=== PATIENT | female | born 1975 ===

== ENCOUNTER 2018-10-30 19:36 | Emergency (ER) | payer SELFPAY ==
[2018-10-30 20:04] VITALS: BP 133/66
--- NOTE | 2018-10-30 20:09 | Event Note ---
ED Screening Note Date of service: 10/30/18 Time: 20:04 ED Screening Note: 43 y/o female comes in for left side chest pain time 1 week. Nothing makes worst. Nothing makes better. No radiation. No PMH no medication Allergic ASA get swollen. This initial assessment/diagnostic orders/clinical plan/treatment(s) is/are subject to change based on patients health status, clinical progression and re- assessment by fellow clinical providers in the ED. Further treatment and workup at subsequent clinical providers discretion. Patient/guardian urged not to elope from the ED as their condition may be serious if not clinically assessed and managed. Initial orders include:
[2018-10-30 20:51] LABS: Basophils # (Auto) 0.1 K/mm3 (0.0-0.1); Basophils % (Auto) 1.5 % (0.0-1.8); Eosinophils # (Auto) 0.1 K/mm3 (0.0-0.4); Eosinophils % (Auto) 0.7 % (0.0-4.3); Hematocrit 36.6 % (30.3-42.9); Hemoglobin 12.7 gm/dl (10.1-14.3); Lymphocytes # (Auto) 2.4 K/mm3 (1.2-5.4); Lymphocytes % (Auto) 28.6 % (13.4-35.0); Mean Corpuscular HGB Conc 35 % (30-34); Mean Corpuscular Volume 89 fl (79-97); Monocytes # (Auto) 0.7 K/mm3 (0.0-0.8); Monocytes % (Auto) 8.3 % (0.0-7.3); Platelet Count 257 K/mm3 (140-440); Red Cell Distribution Width 12.9 % (13.2-15.2)
[2018-10-30 21:12] LABS: Bilirubin,Urine NEG (Negative); Blood,Urine NEG (Negative); Color,Urine Straw (Yellow); Protein,Urine <15 mg/dL mg/dL (Negative); Urobilinogen,Urine < 2.0 mg/dL (<2.0); WBC,Urine < 1.0 /HPF (0.0-6.0)
[2018-10-30 21:17] LABS: Alanine Aminotransferase 10 units/L (7-56); Albumin 4.5 g/dL (3.9-5); BUN/Creatinine Ratio 20; Blood Urea Nitrogen 16 mg/dL (7-17); Calcium 9.3 mg/dL (8.4-10.2); Hemolysis Index 4
[2018-10-30] MEDS ORDERED: IBUPROFEN PO ONE (22:18)
[2018-10-30] MEDS ORDERED: ALUM-MAG HYDROX-SIMETH 200-200-20MG/5ML PO ONE (22:18)
[2018-10-30] MEDS ORDERED: LIDOCAINE VISCOUS 2% PO ONE (22:18)
--- NOTE | 2018-10-30 22:22 | XRay Report ---
CHEST 2 VIEWS INDICATION: Chest pain.. COMPARISON: None FINDINGS: Support devices: None. Heart: Within normal limits. Lungs: No acute air space or interstitial disease. Pleura: No significant pleural effusion. No pneumothorax. Additional findings: None. IMPRESSION: 1. No acute findings. Signer Name: José Betancourt MD Signed: 10/30/2018 10:18 PM Workstation Name: [id number]
--- NOTE | 2018-10-31 00:06 | Emergency Department Report ---
ED Chest Pain HPI - General Chief Complaint: Chest Pain Stated Complaint: CHEST PAIN Time Seen by Provider: 10/30/18 20:03 Source: patient, family Mode of arrival: Ambulatory Limitations: No Limitations - History of Present Illness Initial Comments: pt is a 43 y/o female who comes in for left side chest pain time 1 week. Nothing makes worst. Nothing makes better. No radiation. PMH : GERD no medication Allergic ASA get swollen. There is no N/V no sob no diaphoresis no back pain MD Complaint: chest pain Onset/Timin -: week(s) Onset: during rest, during exertion, after eating Pain Location: epigastric Pain Radiation: none Severity scale (0 -10): 3 Quality: tightness, pressure Consistency: intermittent Improves With: nothing Worsens With: nothing re: denies: nausea, vomting, diaphoresis, dyspnea, sense of impending doom Other Symptoms: acid taste in mouth, burping. denies: cough, fever, syncope, rash, leg swelling, palpitations Treatments Prior to Arrival: none - Related Data Previous Rx's Medication Instructions Recorded Last Taken Type Ibuprofen [Motrin 800 MG tab] 800 mg PO Q8HR PRN #30 tablet 10/31/18 Unknown Rx Omeprazole 20 mg PO DAILY #30 tablet. 10/31/18 Unknown Rx Sucralfate [Carafate] 1 gm PO ACHS 7 Days #28 tablet 10/31/18 Unknown Rx Allergies Allergy/AdvReac Type Severity Reaction Status Date / Time aspirin Allergy Swelling Verified 10/30/18 19:40 Heart Score - HEART Score History: Slightly suspicious EKG: Normal Age: < 45 Risk factors: No known risk factors Troponin: < normal limit HEART Score: 0 ED Review of Systems ROS: Stated complaint: CHEST PAIN Other details as noted in HPI Constitutional: denies: chills, fever Eyes: denies: eye pain, eye discharge, vision change ENT: denies: ear pain, throat pain Respiratory: denies: cough, shortness of breath, wheezing Cardiovascular: denies: chest pain, palpitations Endocrine: no symptoms reported Gastrointestinal: denies: abdominal pain, nausea, diarrhea Genitourinary: denies: urgency, dysuria, discharge Musculoskeletal: denies: back pain, joint swelling, arthralgia Skin: denies: rash, lesions Neurological: denies: headache, weakness, paresthesias Psychiatric: denies: anxiety, depression Hematological/Lymphatic: other. denies: easy bleeding, easy bruising ED Past Medical Hx - Past Medical History Previous Medical History?: No Hx GERD: Yes - Surgical History Past Surgical History?: Yes Additional Surgical History: SPINAL SURGERY, - Social History Smoking Status: Never Smoker Substance Use Type: None - Medications Home Medications: Home Medications Medication Instructions Recorded Confirmed Last Taken Type Ibuprofen [Motrin 800 MG tab] 800 mg PO Q8HR PRN #30 tablet 10/31/18 Unknown Rx Omeprazole 20 mg PO DAILY #30 tablet. 10/31/18 Unknown Rx Sucralfate [Carafate] 1 gm PO ACHS 7 Days #28 tablet 10/31/18 Unknown Rx ED Physical Exam - General Limitations: No Limitations General appearance: alert, in no apparent distress - Head Head exam: Present: atraumatic - Eye Eye exam: Present: normal appearance, PERRL, EOMI Pupils: Present: normal accommodation - ENT ENT exam: Present: normal orophraynx, mucous membranes moist, TM's normal bilaterally, normal external ear exam - Neck Neck exam: Present: normal inspection, tenderness, full ROM. Absent: meningismus, lymphadenopathy, thyromegaly - Respiratory Respiratory exam: Present: normal lung sounds bilaterally, chest wall tenderness. Absent: respiratory distress, wheezes, stridor, prolonged expiratory - Cardiovascular Cardiovascular Exam: Present: regular rate, normal rhythm, normal heart sounds (a randomTingling). Absent: systolic murmur, diastolic murmur, rubs, gallop - GI/Abdominal GI/Abdominal exam: Present: soft, normal bowel sounds. Absent: distended, tenderness, bruit, hernia - Rectal Rectal exam: Present: deferred - Extremities Exam Extremities exam: Present: normal inspection, full ROM, normal capillary refill. Absent: tenderness, pedal edema, joint swelling, calf tenderness - Back Exam Back exam: Present: normal inspection, full ROM, muscle spasm. Absent: tenderness, CVA tenderness (R), CVA tenderness (L), paraspinal tenderness, rash noted - Neurological Exam Neurological exam: Present: alert, oriented X3, CN II-XII intact, normal gait - Psychiatric Psychiatric exam: Present: normal affect, normal mood - Skin Skin exam: Present: warm, dry, intact, normal color. Absent: rash ED Course Vital Signs 10/30/18 20:01 Temperature 98.2 F Pulse Rate 102 H Respiratory 18 Rate Blood Pressure 133/66 O2 Sat by Pulse 100 Oximetry DUGLAS score - Duglas Score Age > 65: (0) No Aspirin use within the Past 7 Days: (0) No 3 or more CAD Risk Factors: (0) No 2 or more Angina events in past 24 hrs: (0) No Known CAD with more than 50% Stenosis: (0) No Elevated Cardiac Markers: (0) No ST Deviation Greater than 0.5mm: (0) No DUGLAS Score: 0 ED Medical Decision Making - Lab Data Result diagrams: 10/30/18 20:10/30/18 20: Lab Results 10/30/18 10/30/18 10/30/18 Range/Units 20: 20: 20: WBC 8.3 (4.5-11.0) K/mm3 RBC 4.10 (3.65-5.03) M/mm3 Hgb 12.7 (10.1-14.3) gm/dl Hct 36.6 (30.3-42.9) % MCV 89 (79-97) fl MCH 31 (28-32) pg MCHC 35 H (30-34) % RDW 12.9 L (13.2-15.2) % Plt Count 257 (140-440) K/mm3 Lymph % (Auto) 28.6 (13.4-35.0) % [place] % (Auto) 8.3 H (0.0-7.3) % Eos % (Auto) 0.7 (0.0-4.3) % Baso % (Auto) 1.5 (0.0-1.8) % Lymph # 2.4 (1.2-5.4) K/mm3 [place] # 0.7 (0.0-0.8) K/mm3 Eos # 0.1 (0.0-0.4) K/mm3 Baso # 0.1 (0.0-0.1) K/mm3 Seg Neutrophils % 60.9 (40.0-70.0) % Seg Neutrophils # 5.0 (1.8-7.7) K/mm3 Sodium 140 (137-145) mmol/L Potassium 3.8 (3.6-5.0) mmol/L Chloride 103.0 (98-107) mmol/L Carbon Dioxide 23 (22-30) mmol/L Anion Gap 18 mmol/L BUN 16 (7-17) mg/dL Creatinine 0.8 (0.7-1.2) mg/dL Estimated GFR > 60 ml/min BUN/Creatinine Ratio 20 % Glucose 101 H (65-100) mg/dL Calcium 9.3 (8.4-10.2) mg/dL Total Bilirubin < 0.20 (0.1-1.2) mg/dL AST 16 (5-40) units/L ALT 10 (7-56) units/L Alkaline Phosphatase 80 (35-129) units/L Troponin T < 0.010 (0.00-0.029) ng/mL Total Protein 7.6 (6.3-8.2) g/dL Albumin 4.5 (3.9-5) g/dL Albumin/Globulin Ratio 1.5 % HCG, Qual Negative (Negative) Urine Color (Yellow) Urine Turbidity (Clear) Urine pH (5.0-7.0) Ur Specific [place] (1.003-1.030) Urine Protein (Negative) mg/dL Urine Glucose (UA) (Negative) mg/dL Urine Ketones (Negative) mg/dL Urine Blood (Negative) Urine Nitrite (Negative) Urine Bilirubin (Negative) Urine Urobilinogen (<2.0) mg/dL Ur Leukocyte Esterase (Negative) Urine WBC (Auto) (0.0-6.0) /HPF Urine RBC (Auto) (0.0-6.0) /HPF U Epithel Cells (Auto) (0-13.0) /HPF 10/30/18 Range/Units 20:29 WBC (4.5-11.0) K/mm3 RBC (3.65-5.03) M/mm3 Hgb (10.1-14.3) gm/dl Hct (30.3-42.9) % MCV (79-97) fl MCH (28-32) pg MCHC (30-34) % RDW (13.2-15.2) % Plt Count (140-440) K/mm3 Lymph % (Auto) (13.4-35.0) % [place] % (Auto) (0.0-7.3) % Eos % (Auto) (0.0-4.3) % Baso % (Auto) (0.0-1.8) % Lymph # (1.2-5.4) K/mm3 [place] # (0.0-0.8) K/mm3 Eos # (0.0-0.4) K/mm3 Baso # (0.0-0.1) K/mm3 Seg Neutrophils % (40.0-70.0) % Seg Neutrophils # (1.8-7.7) K/mm3 Sodium (137-145) mmol/L Potassium (3.6-5.0) mmol/L Chloride (98-107) mmol/L Carbon Dioxide (22-30) mmol/L Anion Gap mmol/L BUN (7-17) mg/dL Creatinine (0.7-1.2) mg/dL Estimated GFR ml/min BUN/Creatinine Ratio % Glucose (65-100) mg/dL Calcium (8.4-10.2) mg/dL Total Bilirubin (0.1-1.2) mg/dL AST (5-40) units/L ALT (7-56) units/L Alkaline Phosphatase (35-129) units/L Troponin T (0.00-0.029) ng/mL Total Protein (6.3-8.2) g/dL Albumin (3.9-5) g/dL Albumin/Globulin Ratio % HCG, Qual (Negative) Urine Color Straw (Yellow) Urine Turbidity Clear (Clear) Urine pH 6.0 (5.0-7.0) Ur Specific [place] 1.012 (1.003-1.030) Urine Protein <15 mg/dl (Negative) mg/dL Urine Glucose (UA) Neg (Negative) mg/dL Urine Ketones Neg (Negative) mg/dL Urine Blood Neg (Negative) Urine Nitrite Neg (Negative) Urine Bilirubin Neg (Negative) Urine Urobilinogen < 2.0 (<2.0) mg/dL Ur Leukocyte Esterase Neg (Negative) Urine WBC (Auto) < 1.0 (0.0-6.0) /HPF Urine RBC (Auto) 1.0 (0.0-6.0) /HPF U Epithel Cells (Auto) 1.0 (0-13.0) /HPF - EKG Data EKG shows normal: sinus rhythm, axis, intervals, QRS complexes, ST-T waves Rate: normal - EKG Data When compared to previous EKG there are: previous EKG unavailable Interpretation: normal EKG (EKG Interp by ED attending No ST Elevated IN ) - Radiology Data Radiology results: report reviewed, image reviewed Ordering Physician: MEGHANN ADKINS Date of Service: 10/30/18 Procedure(s): XR chest routine 2V Accession Number(s): [id number] cc: MEGHANN ADKINS Fluoro Time In Minutes: CHEST 2 VIEWS INDICATION: Chest pain.. COMPARISON: None FINDINGS: Support devices: None. Heart: Within normal limits. Lungs: No acute air space or interstitial disease. Pleura: No significant pleural effusion. No pneumothorax. Additional findings: None. IMPRESSION: 1. No acute findings. Signer Name: José Betancourt MD Signed: 10/30/2018 10:18 PM Workstation Name: [id number] Transcribed By: ZACKERY Dictated By: José Betancourt MD Electronically Authenticated By: José Betancourt MD Signed Date/Time: 10/30/182217 DD/ 17 TD/TT: - Medical Decision Making EKG NSR No ST Elevated IN, CXR: normal no infilatrates no opacities, heart score is 0, DUGLAS score 0, cp relieved to 0/10 with gi cocktail given in ed , there is no cp no n/v no fever or chills at this time. pt will follow up with pcp in 2-3 days return to emergency if symptoms worsen. pt verbalized agreement and understanding of same. pt verbalized agreement and understanding of same. Critical care attestation.: If time is entered above; I have spent that time in minutes in the direct care of this critically ill patient, excluding procedure time. ED Disposition Clinical Impression: Chest pain Qualifiers: Chest pain type: chest pain on breathing Qualified Code(s): R07.1 - Chest pain on breathing; R07.81 - Pleurodynia Disposition: TO HOME OR SELFCARE Is pt being admited?: No Does the pt Need Aspirin: No Condition: Stable Instructions: Chest Pain (ED) Prescriptions: Sucralfate [Carafate] 1 gm PO ACHS 7 Days #28 tablet Ibuprofen [Motrin 800 MG tab] 800 mg PO Q8HR PRN #30 tablet PRN Reason: pain Omeprazole 20 mg PO DAILY #30 tablet.dr Referrals: CHRISTI ESPINOZA MD [Staff Physician] - 3-5 Days Forms: Work/School Release Form(ED) Time of Disposition: 00:25
== END 2018-10-31 00:43 | disposition home or self-care (01) ==
LOC: ED 19:36
DX: R07.89 Other chest pain (principal); K21.9 Gastro-esophageal reflux disease without esophagitis; Z88.6 Allergy status to analgesic agent; Z79.1 Long term (current) use of non-steroidal anti-inflammatories (NSAID)
CPT/HCPCS: 36415; 71046; 80053; 81001; 84484; 84703; 85025; 93005; 93010; 99284

== ENCOUNTER 2018-11-14 09:13 | Emergency (ER) | payer SELFPAY ==
[2018-11-14 09:22] VITALS: BP 129/68
[2018-11-14] MEDS ORDERED: LIDOCAINE VISCOUS 2% PO ONE (09:58)
[2018-11-14] MEDS ORDERED: ALUM-MAG HYDROX-SIMETH 200-200-20MG/5ML PO ONE (09:58)
--- NOTE | 2018-11-14 10:01 | Emergency Department Report ---
ED Abdominal Pain HPI - General Chief Complaint: Abdominal Pain Stated Complaint: ABD PAIN Time Seen by Provider: 11/14/18 09:55 Source: patient Mode of arrival: Ambulatory Limitations: No Limitations - History of Present Illness Initial Comments: Patient is 43 years old female with no significant past medical history except for GERD. Patient presented to the ER complaining of epigastric pain for the last 3 days. Patient describes pain as a burning sensation and sharp pain sometimes with no radiation. Patient denied any nausea or vomiting or diarrhea. She also denied any chest pain or shortness of breath. No fever or chills. MD Complaint: abdominal pain -: days(s) (3) Location: epigastric Radiation: none Migration to: no migration Severity: moderate Severity scale (0 -10): 4 Quality: sharp, burning Associated Symptoms: denies other symptoms - Related Data Previous Rx's Medication Instructions Recorded Last Taken Type Ibuprofen [Motrin 800 MG tab] 800 mg PO Q8HR PRN #30 tablet 10/31/18 Unknown Rx Omeprazole 20 mg PO DAILY #30 tablet. 10/31/18 Unknown Rx Sucralfate [Carafate] 1 gm PO ACHS 7 Days #28 tablet 10/31/18 Unknown Rx Allergies Allergy/AdvReac Type Severity Reaction Status Date / Time aspirin Allergy Swelling Verified 10/30/18 19:40 ED Review of Systems ROS: Stated complaint: ABD PAIN Other details as noted in HPI Comment: All other systems reviewed and negative Constitutional: denies: chills, fever Cardiovascular: denies: chest pain, palpitations Gastrointestinal: abdominal pain. denies: nausea, vomiting, diarrhea, constipation, hematemesis, melena, hematochezia Musculoskeletal: denies: back pain ED Past Medical Hx - Past Medical History Previous Medical History?: Yes Hx GERD: Yes - Surgical History Past Surgical History?: No Hx Coronary Stent: No Hx Open Heart Surgery: No Hx Pacemaker: No Hx Internal Defibrillator: No Hx Cholecystectomy: No Hx Appendectomy: No Hx Breast Surgery: No Additional Surgical History: SPINAL SURGERY, - Social History Smoking Status: Never Smoker Substance Use Type: None - Medications Home Medications: Home Medications Medication Instructions Recorded Confirmed Last Taken Type Ibuprofen [Motrin 800 MG tab] 800 mg PO Q8HR PRN #30 tablet 10/31/18 Unknown Rx Omeprazole 20 mg PO DAILY #30 tablet. 10/31/18 Unknown Rx Sucralfate [Carafate] 1 gm PO ACHS 7 Days #28 tablet 10/31/18 Unknown Rx ED Physical Exam - General Limitations: No Limitations General appearance: alert, in no apparent distress - Head Head exam: Present: atraumatic, normocephalic, normal inspection - Eye Eye exam: Present: normal appearance, PERRL - ENT ENT exam: Present: normal exam, normal orophraynx, mucous membranes moist - Neck Neck exam: Present: normal inspection, full ROM. Absent: tenderness, meningismus, lymphadenopathy, thyromegaly - Respiratory Respiratory exam: Present: normal lung sounds bilaterally - Cardiovascular Cardiovascular Exam: Present: regular rate, normal rhythm, normal heart sounds - GI/Abdominal GI/Abdominal exam: Present: soft, normal bowel sounds. Absent: distended, tenderness, guarding, rebound, rigid, organomegaly, mass, bruit, pulsatile mass, hernia - Extremities Exam Extremities exam: Present: normal inspection, full ROM, normal capillary refill. Absent: tenderness, pedal edema, calf tenderness - Back Exam Back exam: Present: normal inspection, full ROM. Absent: CVA tenderness (R), CVA tenderness (L), muscle spasm, paraspinal tenderness, vertebral tenderness - Neurological Exam Neurological exam: Present: alert, oriented X3, CN II-XII intact, normal gait, reflexes normal - Skin Skin exam: Present: warm, intact, normal color ED Course Vital Signs 11/14/18 09:21 Temperature 98.3 F Pulse Rate 61 Respiratory 18 Rate Blood Pressure 129/68 [Right] O2 Sat by Pulse 100 Oximetry ED Medical Decision Making - Lab Data Result diagrams: 11/14/18 10:12 11/14/18 10:12 - Medical Decision Making Patient is 43 years old female with no significant past medical history except for GERD. Patient presented to the ER complaining of epigastric pain for the last 3 days. Patient describes pain as a burning sensation and sharp pain sometimes with no radiation. Patient denied any nausea or vomiting or diarrhea. She also denied any chest pain or shortness of breath. No fever or chills. Patient's symptoms significantly improved from his GI cocktail. Labs reviewed and is negative for acute finding. I believe patient's symptoms is most likely related to gastritis versus ulcer. Patient given [facility] [place] [facility]-to follow-up with in the next 2-3 days for possible endoscopy if symptoms are not improved. Patient also advised to return to the ER if symptoms get worse. Critical care attestation.: If time is entered above; I have spent that time in minutes in the direct care of this critically ill patient, excluding procedure time. ED Disposition Clinical Impression: Abdominal pain, Gastritis Disposition: DC- TO HOME OR SELFCARE Is pt being admited?: No Condition: Stable Instructions: Abdominal Pain (ED), Gastritis (ED) Referrals: [facility] [Provider Group] - 3-5 Days [facility] [Provider Group] - 3-5 Days
[2018-11-14 10:31] LABS: Basophils % (Auto) 0.6 % (0.0-1.8); Hematocrit 33.4 % (30.3-42.9); Hemoglobin 11.5 gm/dl (10.1-14.3); Lymphocytes # (Auto) 1.3 K/mm3 (1.2-5.4); Lymphocytes % (Auto) 26.8 % (13.4-35.0); Mean Corpuscular HGB Conc 34 % (30-34); Mean Corpuscular Volume 90 fl (79-97); Monocytes # (Auto) 0.3 K/mm3 (0.0-0.8); Monocytes % (Auto) 7.2 % (0.0-7.3); Platelet Count 236 K/mm3 (140-440)
[2018-11-14 10:56] LABS: Alanine Aminotransferase 114 units/L (7-56); Albumin 3.9 g/dL (3.9-5); BUN/Creatinine Ratio 20; Blood Urea Nitrogen 14 mg/dL (7-17); Calcium 9.2 mg/dL (8.4-10.2); Hemolysis Index 3
[2018-11-14 14:41] LABS: Bilirubin,Urine NEG (Negative); Blood,Urine NEG (Negative); Color,Urine Straw (Yellow); Protein,Urine <15 mg/dL mg/dL (Negative); RBC,Urine < 1.0 /HPF (0.0-6.0); Urobilinogen,Urine < 2.0 mg/dL (<2.0); WBC,Urine < 1.0 /HPF (0.0-6.0)
== END 2018-11-14 15:08 | disposition home or self-care (01) ==
LOC: ED 09:13
DX: K29.70 Gastritis, unspecified, without bleeding (principal); K21.9 Gastro-esophageal reflux disease without esophagitis; Z98.890 Other specified postprocedural states; Z79.899 Other long term (current) drug therapy; Z88.6 Allergy status to analgesic agent
CPT/HCPCS: 36415; 80053; 81001; 83690; 84703; 85025

== ENCOUNTER 2019-03-25 20:15 | Emergency (ER) | payer OTHER ==
[2019-03-25 20:25] VITALS: BP 114/43
--- NOTE | 2019-03-25 22:39 | XRay Report ---
LEFT ANKLE, 3 VIEWS INDICATION / CLINICAL INFORMATION: left ankle pain. COMPARISON: None available. FINDINGS: No fracture or dislocation. No significant soft tissue swelling. No significant degenerative change. Tiny calcaneal spur, incidentally noted. IMPRESSION: No significant abnormality.. Signer Name: Agueda Brown MD Signed: 03/25/2019 10:35 PM Workstation Name: [id number]
--- NOTE | 2019-03-25 22:40 | XRay Report ---
MR SPINE, 2 VIEWS INDICATION / CLINICAL INFORMATION: MAIN: lower back pain; Back, should and left knee pain, S/P fall at work today as per pt, denies sahara ing head or LOC. COMPARISON: None available. FINDINGS: Vertebral body heights are maintained. There is minimal degenerative disc disease at L5-S1. The remai nder of the disc spaces are well-preserved. Alignment is normal. IMPRESSION: Mild degenerative disc disease at L5-S1. No evidence for fracture or traumatic malalignme nt. Signer Name: Agueda Brown MD Signed: 03/25/2019 10:35 PM Workstation Name: [id number]
--- NOTE | 2019-03-25 22:41 | XRay Report ---
RIGHT SHOULDER, 3 VIEWS INDICATION / CLINICAL INFORMATION: Right shoulder pain. COMPARISON: None available. FINDINGS: No fracture or dislocation. The shoulder is intact. No significant degenerative change. Visualized portion of the left lung is clear. IMPRESSION: Negative exam. Signer Name: Agueda Brown MD Signed: 03/25/2019 10:37 PM Workstation Name: [id number]
--- NOTE | 2019-03-25 22:41 | XRay Report ---
LEFT KNEE, 3 VIEWS INDICATION / CLINICAL INFORMATION: left knee pain. COMPARISON: None available. FINDINGS: No fracture or dislocation. Minimal degenerative change in the medial joint compartment. IMPRESSION: Minimal degenerative change. No evidence for fracture. Signer Name: Agueda Brown MD Signed: 03/25/2019 10:36 PM Workstation Name: [id number]
[2019-03-25] MEDS ORDERED: IBUPROFEN 800 MG TAB PO ONE (23:20)
[2019-03-25] MEDS ORDERED: HYDROcodone/ACETAMINOPHEN 5-325 MG TAB PO ONE (23:20)
--- NOTE | 2019-03-25 23:33 | Emergency Department Report ---
ED Fall HPI - General Chief Complaint: Fall Stated Complaint: FALL/BACK/SHOULDER/KNEE PAIN Time Seen by Provider: 03/25/19 23:04 Source: patient, family Mode of arrival: Ambulatory - History of Present Illness Initial Comments: Patient is a 43-year-old female who is presenting with multiple areas of pain after fall at work. 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 She denies striking her head. Patient has pain at the left ankle, left knee, lower back and right shoulder. Place Fall Occurred: work Loss of Consciousness: none Severity scale (0 -10): 7 Quality: aching Context: tripped/slipped Associated Symptoms: denies: headache, neck pain, numbness, weakness, chest paint, shortness of breath - Related Data Previous Rx's Medication Instructions Recorded Last Taken Type Ibuprofen [Motrin 800 MG tab] 800 mg PO Q8HR PRN #30 tablet 10/31/18 Unknown Rx Omeprazole 20 mg PO DAILY #30 tablet. 10/31/18 Unknown Rx Sucralfate [Carafate] 1 gm PO ACHS 7 Days #28 tablet 10/31/18 Unknown Rx Esomeprazole Magnesium [NexIUM] 40 mg PO QDAY #30 capsule. 11/14/18 Unknown Rx Ketorolac [Toradol] 10 mg PO Q6H PRN #12 tablet 03/25/19 Unknown Rx methOCARBAMOL [Robaxin TAB] 500 mg PO Q6H PRN #14 tablet 03/25/19 Unknown Rx traMADoL [Ultram] 50 mg PO Q6HR PRN #12 tablet 03/25/19 Unknown Rx Allergies Allergy/AdvReac Type Severity Reaction Status Date / Time aspirin Allergy Swelling Verified 10/30/18 19:40 ED Review of Systems ROS: Stated complaint: FALL/BACK/SHOULDER/KNEE PAIN Other details as noted in HPI Comment: All other systems reviewed and negative ED Past Medical Hx - Past Medical History Previous Medical History?: Yes Hx Hypertension: Yes Hx GERD: Yes - Surgical History Past Surgical History?: Yes Hx Coronary Stent: No Hx Open Heart Surgery: No Hx Pacemaker: No Hx Internal Defibrillator: No Hx Cholecystectomy: No Hx Appendectomy: No Hx Breast Surgery: No Additional Surgical History: SPINAL SURGERY, - Social History Smoking Status: Never Smoker Substance Use Type: None - Medications Home Medications: Home Medications Medication Instructions Recorded Confirmed Last Taken Type Ibuprofen [Motrin 800 MG tab] 800 mg PO Q8HR PRN #30 tablet 10/31/18 Unknown Rx Omeprazole 20 mg PO DAILY #30 tablet. 10/31/18 Unknown Rx Sucralfate [Carafate] 1 gm PO ACHS 7 Days #28 tablet 10/31/18 Unknown Rx Esomeprazole Magnesium [NexIUM] 40 mg PO QDAY #30 capsule. 11/14/18 Unknown Rx Ketorolac [Toradol] 10 mg PO Q6H PRN #12 tablet 03/25/19 Unknown Rx methOCARBAMOL [Robaxin TAB] 500 mg PO Q6H PRN #14 tablet 03/25/19 Unknown Rx traMADoL [Ultram] 50 mg PO Q6HR PRN #12 tablet 03/25/19 Unknown Rx ED Physical Exam - General Limitations: Language Barrier, Physical Limitation General appearance: alert, in no apparent distress - Head Head exam: Present: atraumatic, normocephalic - Eye Eye exam: Present: normal appearance, PERRL, EOMI - ENT ENT exam: Present: mucous membranes moist - Neck Neck exam: Present: normal inspection - Respiratory Respiratory exam: Present: normal lung sounds bilaterally. Absent: respiratory distress, wheezes, rales, rhonchi - Cardiovascular Cardiovascular Exam: Present: regular rate, normal rhythm, normal heart sounds - GI/Abdominal GI/Abdominal exam: Present: soft, normal bowel sounds - Extremities Exam Extremities exam: Present: normal inspection - Expanded Upper Extremity Exam Right Shoulder Exam: Present: normal inspection, tenderness. Absent: full ROM, swelling, abrasion, deformity, crepidus, dislocation, tenderness over AC joint - Expanded Lower Extremity Exam Left Knee exam: Present: full ROM, tenderness (mild). Absent: swelling, erythema, effusion, posterior draw sign Ankle exam: Present: full ROM, tenderness, swelling - Back Exam Back exam: Present: normal inspection, paraspinal tenderness (lumbar), vertebral tenderness - Neurological Exam Neurological exam: Present: alert, oriented X3 - Psychiatric Psychiatric exam: Present: normal affect, normal mood - Skin Skin exam: Present: warm, dry, intact, normal color. Absent: rash ED Course Vital Signs 03/25/19 20:22 Temperature 98.4 F Pulse Rate 72 Respiratory 16 Rate Blood Pressure 114/43 O2 Sat by Pulse 99 Oximetry ED Medical Decision Making - Radiology Data X-ray left knee shows some degenerative changes but no fracture. X-ray of the right shoulder shows no fracture. Lumbar spine films show L5-S1 degenerative joint changes but no acute fracture. Left ankle shows no acute process. Critical care attestation.: If time is entered above; I have spent that time in minutes in the direct care of this critically ill patient, excluding procedure time. ED Disposition Clinical Impression: Fall Qualifiers: Encounter type: initial encounter Qualified Code(s): W19.XXXA - Unspecified fall, initial encounter Ankle sprain Qualifiers: Encounter type: initial encounter Involved ligament of ankle: unspecified ligament Laterality: left Qualified Code(s): S93.402A - Sprain of unspecified ligament of left ankle, initial encounter Lumbar strain Qualifiers: Encounter type: initial encounter Qualified Code(s): S39.012A - Strain of muscle, fascia and tendon of lower back, initial encounter Rotator cuff injury Qualifiers: Encounter type: initial encounter Laterality: right Qualified Code(s): S46.001A - Unspecified injury of muscle(s) and tendon(s) of the rotator cuff of right shoulder, initial encounter Disposition: DC-01 TO HOME OR SELFCARE Is pt being admited?: No Does the pt Need Aspirin: No Condition: Stable Instructions: Muscle Strain (ED), Musculoskeletal Pain (ED), RICE Therapy (ED) Referrals: PRIMARY CARE, [Primary Care Provider] - 3-5 Days Time of Disposition: 23:33 Print Language: IRISH
== END 2019-03-26 00:24 | disposition home or self-care (01) ==
LOC: ED 20:15
DX: S93.402A Sprain of unspecified ligament of left ankle, initial encounter (principal); S39.012A Strain of muscle, fascia and tendon of lower back, initial encounter; S46.001A Unspecified injury of muscle(s) and tendon(s) of the rotator cuff of right shoulder, initial encounter; I10 Essential (primary) hypertension; K21.9 Gastro-esophageal reflux disease without esophagitis; Z98.890 Other specified postprocedural states; Z79.1 Long term (current) use of non-steroidal anti-inflammatories (NSAID); Z79.899 Other long term (current) drug therapy; Z88.6 Allergy status to analgesic agent; W19.XXXA Unspecified fall, initial encounter; Y93.89 Activity, other specified; Y92.69 Other specified industrial and construction area as the place of occurrence of the external cause; Y99.8 Other external cause status
CPT/HCPCS: 72100

== ENCOUNTER 2020-10-24 14:40 | Outpatient (CLI) | payer OTHER ==
--- NOTE | 2020-10-24 16:23 | Mammography Report ---
BILATERAL DIGITAL DIAGNOSTIC MAMMOGRAM WITH CAD WITH TOMOSYNTHESIS -- 10/24/2020 RIGHT LIMITED BREAST ULTRASOUND INDICATION: Patient presents for evaluation of an area of palpable concern in the right breast. TECHNIQUE: Digital bilateral mammographic imaging was performed. Spot compression views were obtaine d. Limited ultrasound was performed. This examination was interpreted with the benefit of Computer- ded Detection (CAD) analysis. COMPARISON: None available FINDINGS: Breast Density: The breasts are heterogeneously dense, which may obscure small masses. MAMMOGRAPHIC FINDINGS: There is a 6 mm nodular density seen in the 6:00 position of the right breast, middle depth. Otherwise, there is no evidence of dominant mass, suspicious calcifications or archite ctural distortion in either breast. There is no mammographic abnormality underlying the marker denoti ng site of palpable concern in the upper outer quadrant of the right breast. ULTRASOUND FINDINGS: Targeted ultrasound evaluation was performed of the area of interest. Correspo nding with the nodular density seen mammographically, there is a 6 mm benign cluster of cysts seen in the right breast 6:00 position located 6 cm from the nipple. Targeted ultrasound of the area of palp able concern in the 9:00 right breast is unremarkable. IMPRESSION: 1. No suspicious mammographic or sonographic abnormality to account for the area of palpable concern in the right breast, therefore clinical correlation is recommended. Follow up recommendation: Routine yearly BI-RADS Category 2: Benign. A "normal" or negative report should not discourage follow up or biopsy of a clinically significant f inding. A written summary of these findings will be mailed to the patient. The patient will be entered into a mammography reporting system which will generate a reminder letter for the patient's next appointmen t at the appropriate interval. According to the [employer], yearly mammograms are recommended starting at age 40 and continuing as long as a woman is in good health. Breast MRI is recommended for women with an malka roximately 20-25% or greater lifetime risk of breast cancer, including women with a strong family his tory of breast or ovarian cancer and women who have been treated for Hodgkin's disease. Signer Name: Juanita Sky MD Signed: 10/24/2020 4:18 PM Workstation Name: [email or web address]
== END 2020-10-24 14:41 | disposition home or self-care (01) ==
LOC: SPVWC 14:40
PROVIDERS: ATTEND Surgery
DX: N60.01 Solitary cyst of right breast (principal)
CPT/HCPCS: 76642; 77066; G0279

== ENCOUNTER 2021-07-17 09:48 | Emergency (ER) | payer OTHER ==
--- NOTE | 2021-07-17 12:07 | Emergency Department Report ---
ED Back Pain/Injury HPI - General Chief Complaint: Abdominal Pain Stated Complaint: BACK PAIN X3 DAYS Time Seen by Provider: 07/17/21 11:59 Source: patient Limitations: Language Barrier - History of Present Illness Initial Comments: 46-year-old female presents to the emergency room for 4-day history of right flank pain. Patient denies any radiation denies hematuria no vaginal discharge dysuria. Patient denies any injury. 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 States that she is allergic to aspirin therefore she is only taking Tylenol. She reports she does not have a primary care provider. MD Complaint: back pain Similar Symptoms Previously: No Radiation: none Severity scale (0 -10): 5 Improves With: none Worsens With: none Associated Symptoms: denies: weakness, difficulty urinating, fever/chills, constipation - Related Data Previous Rx's Medication Instructions Recorded Last Taken Type Ibuprofen [Motrin 800 MG tab] 800 mg PO Q8HR PRN #30 tablet 10/31/18 Unknown Rx Omeprazole 20 mg PO DAILY #30 tablet. 10/31/18 Unknown Rx Sucralfate [Carafate] 1 gm PO ACHS 7 Days #28 tablet 10/31/18 Unknown Rx Esomeprazole Magnesium [NexIUM] 40 mg PO QDAY #30 capsule. 11/14/18 Unknown Rx Ketorolac [Toradol] 10 mg PO Q6H PRN #12 tablet 03/25/19 Unknown Rx methOCARBAMOL [Robaxin TAB] 500 mg PO Q6H PRN #14 tablet 07/17/21 Unknown Rx traMADoL [Ultram 50 MG tab] 50 mg PO Q6HR PRN #12 tablet 07/17/21 Unknown Rx Allergies Allergy/AdvReac Type Severity Reaction Status Date / Time aspirin Allergy Swelling Verified 07/17/21 11:33 ED Review of Systems ROS: Stated complaint: BACK PAIN X3 DAYS Other details as noted in HPI Comment: All other systems reviewed and negative ED Past Medical Hx - Past Medical History Previous Medical History?: Yes Hx Hypertension: Yes Hx GERD: Yes - Surgical History Hx Coronary Stent: No Hx Open Heart Surgery: No Hx Pacemaker: No Hx Internal Defibrillator: No Hx Cholecystectomy: No Hx Appendectomy: No Hx Breast Surgery: No Additional Surgical History: SPINAL SURGERY, - Social History Smoking Status: Never Smoker Substance Use Type: None - Medications Home Medications: Home Medications Medication Instructions Recorded Confirmed Last Taken Type Ibuprofen [Motrin 800 MG tab] 800 mg PO Q8HR PRN #30 tablet 10/31/18 Unknown Rx Omeprazole 20 mg PO DAILY #30 tablet. 10/31/18 Unknown Rx Sucralfate [Carafate] 1 gm PO ACHS 7 Days #28 tablet 10/31/18 Unknown Rx Esomeprazole Magnesium [NexIUM] 40 mg PO QDAY #30 capsule. 11/14/18 Unknown Rx Ketorolac [Toradol] 10 mg PO Q6H PRN #12 tablet 03/25/19 Unknown Rx methOCARBAMOL [Robaxin TAB] 500 mg PO Q6H PRN #14 tablet 07/17/21 Unknown Rx traMADoL [Ultram 50 MG tab] 50 mg PO Q6HR PRN #12 tablet 07/17/21 Unknown Rx ED Physical Exam - General Limitations: Language Barrier General appearance: alert, in no apparent distress - Head Head exam: Present: atraumatic, normocephalic, normal inspection - Eye Eye exam: Present: normal appearance, EOMI - ENT ENT exam: Present: normal external ear exam - Neck Neck exam: Present: normal inspection, full ROM - Respiratory Respiratory exam: Absent: respiratory distress - Cardiovascular Cardiovascular Exam: Present: regular rate - GI/Abdominal GI/Abdominal exam: Present: soft. Absent: distended, tenderness, guarding - Extremities Exam Extremities exam: Present: normal inspection, full ROM. Absent: tenderness - Back Exam Back exam: Present: normal inspection, full ROM. Absent: tenderness, CVA tenderness (R), CVA tenderness (L), muscle spasm - Neurological Exam Neurological exam: Present: alert, oriented X3, normal gait - Psychiatric Psychiatric exam: Present: normal affect, normal mood - Skin Skin exam: Present: warm, dry, intact, normal color. Absent: rash ED Course Vital Signs 07/17/21 11:29 Temperature 98.4 F Pulse Rate 84 Respiratory 18 Rate Blood Pressure 126/58 O2 Sat by Pulse 100 Oximetry ED Medical Decision Making - Medical Decision Making 46-year-old female presents to the emergency room for 4-day history of right flank pain. Patient denies any radiation denies hematuria no vaginal discharge dysuria. Patient denies any injury. 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 States that she is allergic to aspirin therefore she is only taking Tylenol. She reports she does not have a primary care provider. UA has been sent. Critical care attestation.: If time is entered above; I have spent that time in minutes in the direct care of this critically ill patient, excluding procedure time. ED Disposition Clinical Impression: Low back strain Disposition: 01 HOME / SELF CARE / HOMELESS Is pt being admited?: No Does the pt Need Aspirin: No Condition: Stable Instructions: Abdominal Pain (ED), Lumbar Sprain, Muscle Strain, [id number], Back Injury Prevention, [id number] Additional Instructions: Urinalysis negative for any infection. You have a back strain. Take pain medication and muscle relaxant. Follow-up with a primary care provider. Anlisis de orina negativo para cualquier infeccin. Tienes dg distensin en la espalda. Caitlin analgsicos y relajantes musculares. Seguimiento con un proveedor de atencin primaria Prescriptions: methOCARBAMOL [Robaxin TAB] 500 mg PO Q6H PRN #14 tablet PRN Reason: Muscle Spasm traMADoL [Ultram 50 MG tab] 50 mg PO Q6HR PRN #12 tablet PRN Reason: Pain Referrals: CHAPINCITO COTA MD [Staff Physician] - 3-5 Days Forms: Work/School Release Form(ED) Time of Disposition: 14:02 Print Language: GERMAN
[2021-07-17 13:35] LABS: Bacteria,Urine 1+ /HPF (Negative); Bilirubin,Urine NEG (Negative); Blood,Urine NEG (Negative); Color,Urine Straw (Yellow); Mucus,Urine FEW /HPF; Protein,Urine <15 mg/dL mg/dL (Negative); Urobilinogen,Urine < 2.0 mg/dL (<2.0)
[2021-07-17 16:16] VITALS: BP 126/78
== END 2021-07-17 16:05 | disposition home or self-care (01) ==
LOC: ED 09:48
DX: S39.012A Strain of muscle, fascia and tendon of lower back, initial encounter (principal); I10 Essential (primary) hypertension; Z88.6 Allergy status to analgesic agent; X58.XXXA Exposure to other specified factors, initial encounter; Y93.89 Activity, other specified; Y92.89 Other specified places as the place of occurrence of the external cause; Y99.8 Other external cause status
CPT/HCPCS: 81001; 99283

== ENCOUNTER 2021-07-23 07:28 | Emergency (ER) | payer OTHER ==
[2021-07-23] MEDS ORDERED: CYCLOBENZAPRINE 10 MG TAB PO ONE (08:32)
[2021-07-23] MEDS ORDERED: KETOROLAC 10 MG TAB PO ONE (08:32)
[2021-07-23] MEDS ORDERED: predniSONE 20 MG TAB PO ONE (08:32)
[2021-07-23] MEDS ORDERED: ONDANSETRON 4 MG ODT TAB PO ONE (09:39)
--- NOTE | 2021-07-23 10:42 | Emergency Department Report ---
ED Neck Pain/Injury HPI - General Chief Complaint: Neck Pain/Injury Stated Complaint: LOW PRESSURE Time Seen by Provider: 07/23/21 08:15 Mode of arrival: Ambulatory Limitations: Language Barrier - History of Present Illness Initial Comments: 46-year-old female with a past medical history of hypertension presents to the emergency department for evaluation of left posterior neck pain. She states that she woke up with neck pain and had a bout of nausea. She states volodymyr t she took a medication at home that improved the pain but pain is now gone. Pain is worse with movement and palpation. She denies headache, vision changes, chest pain, shortness of breath, vomiting, and dizziness. MD Complaint: neck pain -: Sudden, hour(s) Place: home Severity: moderate Severity scale (0 -10): 7 Quality: aching Consistency: constant Worsens With: movement of extremity, movement of neck Context: other (Woke up with pain) Associated Symptoms: nausea. denies: headache, fever, numbness, tingling, weakness, vertigo, difficulty walking, swollen glands, difficulty swallowing, vomiting Treatments Prior to Arrival: other (A medication that she was prescribed from the [place] that she does not recall the name of) - Related Data Previous Rx's Medication Instructions Recorded Last Taken Type Ibuprofen [Motrin 800 MG tab] 800 mg PO Q8HR PRN #30 tablet 10/31/18 Unknown Rx Omeprazole 20 mg PO DAILY #30 tablet. 10/31/18 Unknown Rx Sucralfate [Carafate] 1 gm PO ACHS 7 Days #28 tablet 10/31/18 Unknown Rx Esomeprazole Magnesium [NexIUM] 40 mg PO QDAY #30 capsule. 11/14/18 Unknown Rx Ketorolac [Toradol] 10 mg PO Q6H PRN #12 tablet 03/25/19 Unknown Rx methOCARBAMOL [Robaxin TAB] 500 mg PO Q6H PRN #14 tablet 07/17/21 Unknown Rx traMADoL [Ultram 50 MG tab] 50 mg PO Q6HR PRN #12 tablet 07/17/21 Unknown Rx Cyclobenzaprine [Flexeril] 10 mg PO TID PRN #21 tab 07/23/21 Unknown Rx Lidocaine [Lidoderm] 1 each TP DAILY #10 patch 07/23/21 Unknown Rx Naproxen [Naprosyn] 500 mg PO BID #14 tab 07/23/21 Unknown Rx Allergies Allergy/AdvReac Type Severity Reaction Status Date / Time aspirin Allergy Swelling Verified 07/17/21 11:33 ED Review of Systems ROS: Stated complaint: LOW PRESSURE Other details as noted in HPI Comment: All other systems reviewed and negative Constitutional: denies: chills, fever ENT: denies: congestion Respiratory: denies: cough, shortness of breath, SOB with exertion, SOB at rest, stridor, wheezing Cardiovascular: denies: chest pain, palpitations, dyspnea on exertion, orthopnea, edema, syncope, paroxysmal nocturnal dyspnea Gastrointestinal: nausea. denies: abdominal pain, vomiting, diarrhea, hematemesis, melena, hematochezia Genitourinary: denies: urgency, dysuria Musculoskeletal: denies: back pain Skin: denies: rash, lesions Neurological: denies: headache, weakness, numbness, paresthesias, confusion, abnormal gait, vertigo ED Past Medical Hx - Past Medical History Hx Hypertension: Yes Hx GERD: Yes - Surgical History Hx Coronary Stent: No Hx Open Heart Surgery: No Hx Pacemaker: No Hx Internal Defibrillator: No Hx Cholecystectomy: No Hx Appendectomy: No Hx Breast Surgery: No Additional Surgical History: SPINAL SURGERY, - Social History Smoking Status: Never Smoker Substance Use Type: None - Medications Home Medications: Home Medications Medication Instructions Recorded Confirmed Last Taken Type Ibuprofen [Motrin 800 MG tab] 800 mg PO Q8HR PRN #30 tablet 10/31/18 Unknown Rx Omeprazole 20 mg PO DAILY #30 tablet. 10/31/18 Unknown Rx Sucralfate [Carafate] 1 gm PO ACHS 7 Days #28 tablet 10/31/18 Unknown Rx Esomeprazole Magnesium [NexIUM] 40 mg PO QDAY #30 capsule. 11/14/18 Unknown Rx Ketorolac [Toradol] 10 mg PO Q6H PRN #12 tablet 03/25/19 Unknown Rx methOCARBAMOL [Robaxin TAB] 500 mg PO Q6H PRN #14 tablet 07/17/21 Unknown Rx traMADoL [Ultram 50 MG tab] 50 mg PO Q6HR PRN #12 tablet 07/17/21 Unknown Rx Cyclobenzaprine [Flexeril] 10 mg PO TID PRN #21 tab 07/23/21 Unknown Rx Lidocaine [Lidoderm] 1 each TP DAILY #10 patch 07/23/21 Unknown Rx Naproxen [Naprosyn] 500 mg PO BID #14 tab 07/23/21 Unknown Rx ED Physical Exam - General Limitations: Language Barrier (Patient speaks mostly Thai but daughter at bedside to assist with translation) General appearance: alert, in no apparent distress - Head Head exam: Present: atraumatic, normocephalic - Eye Eye exam: Present: normal appearance. Absent: conjunctival injection - Neck Neck exam: Present: normal inspection, tenderness (Left posterior only worse with palpation and movement). Absent: meningismus, full ROM, lymphadenopathy - Expanded Neck Exam Expanded Neck exam: Absent: midline deformity, anterior neck swelling, tracheal deviation 1 - Tenderness - Respiratory Respiratory exam: Present: normal lung sounds bilaterally. Absent: respiratory distress, wheezes, rales, rhonchi, stridor, chest wall tenderness - Cardiovascular Cardiovascular Exam: Present: normal heart sounds. Absent: regular rate - GI/Abdominal GI/Abdominal exam: Present: soft, normal bowel sounds. Absent: distended, tenderness, guarding, rebound, rigid - Extremities Exam Extremities exam: Present: normal inspection, full ROM, normal capillary refill. Absent: tenderness, pedal edema, joint swelling, calf tenderness - Back Exam Back exam: Present: normal inspection. Absent: CVA tenderness (R), CVA tenderness (L), paraspinal tenderness, vertebral tenderness - Neurological Exam Neurological exam: Present: alert, oriented X3, normal gait, reflexes normal. Absent: motor sensory deficit - Psychiatric Psychiatric exam: Present: normal affect, normal mood - Skin Skin exam: Present: warm, dry, intact, normal color ED Course Vital Signs 07/23/21 07:37 Temperature 98.5 F Pulse Rate 76 Respiratory 18 Rate Blood Pressure 125/70 [Left] O2 Sat by Pulse 100 Oximetry ED Medical Decision Making - Medical Decision Making 46-year-old female with a past medical history of hypertension presents to the emergency department for evaluation of left posterior neck pain. She states that she woke up with neck pain and had a bout of nausea. She states that she took a medication at home that improved the pain but pain is now gone. Pain is worse with movement and palpation. She denies headache, vision changes, chest pain, shortness of breath, vomiting, and dizziness. Exam and symptoms consistent with musculoskeletal pain only. Patient will be treated with one-time dose of Toradol, Flexeril, and prednisone then discharged home with naproxen, Flexeril, and Lidoderm patch to use as needed for pain. She is advised to follow-up with a primary care provider if no improvement or worsening symptoms. She verbalizes understanding of and agreement with plan of care. Critical care attestation.: If time is entered above; I have spent that time in minutes in the direct care of this critically ill patient, excluding procedure time. ED Disposition Clinical Impression: Neck pain on left side Disposition: HOME / SELF CARE / HOMELESS Is pt being admited?: No Does the pt Need Aspirin: No Condition: Stable Instructions: Neck Exercises, Musculoskeletal Pain Additional Instructions: Take medications as prescribed. Follow-up with primary care provider if no improvement or worsening symptoms. Return to the emergency department as needed. Prescriptions: Cyclobenzaprine [Flexeril] 10 mg PO TID PRN #21 tab PRN Reason: Muscle Spasm Lidocaine [Lidoderm] 1 each TP DAILY #10 patch Naproxen [Naprosyn] 500 mg PO BID #14 tab Referrals: CHAPINCITO COTA MD [Staff Physician] - 3-5 Days Forms: Work/School Release Form(ED) Time of Disposition: 10:48 Print Language: PORTUGUESE
[2021-07-23] MEDS ORDERED: KETOROLAC 10 MG TAB PO SCH (11:30)
[2021-07-23] MEDS ORDERED: predniSONE 20 MG TAB PO SCH (11:30)
[2021-07-23] MEDS ORDERED: ONDANSETRON 4 MG ODT TAB PO SCH (11:30)
[2021-07-23] MEDS ORDERED: CYCLOBENZAPRINE 10 MG TAB PO SCH (11:30)
[2021-07-23 13:14] VITALS: BP 118/74
== END 2021-07-23 13:15 | disposition home or self-care (01) ==
LOC: ED 07:28
DX: M54.2 Cervicalgia (principal); Z88.6 Allergy status to analgesic agent; I10 Essential (primary) hypertension
CPT/HCPCS: 99282; J3490; Q0162

== ENCOUNTER 2021-11-26 14:26 | Outpatient (CLI) | payer OTHER ==
--- NOTE | 2021-11-27 08:32 | Mammography Report ---
DIGITAL SCREENING MAMMOGRAM WITH CAD, 11/26/2021 CLINICAL INFORMATION / INDICATION: Routine screening mammography. TECHNIQUE: Digital bilateral 2D mammography was obtained in the craniocaudal and mediolateral oblique projections. This examination was interpreted with the benefit of Computer-Aided Detection analysis. COMPARISON: 10/24/20. FINDINGS: Breast Density: The breasts are heterogeneously dense, which may obscure small masses. No dominant mass, suspicious calcifications, or architectural distortion in either breast. A small benign intramammary lymph node in the right lateral posterior breast is stable. IMPRESSION: No mammographic evidence of malignancy. Follow up recommendation: Routine yearly screening mammogram. BI-RADS Category 2: BENIGN. A "normal" or negative report should not discourage follow up or biopsy of a clinically significant f inding. A written summary of these findings will be mailed to the patient. The patient will be entered into a mammography reporting system which will generate a reminder letter for the patient's next appointmen t at the appropriate interval. The [employer] recommends yearly mammograms starting at age 40 and continuing as l alix as a woman is in good health. Breast MRI is recommended for women with an approximate 20-25% or greater lifetime risk of breast cancer, including women with a strong family history of breast or ova ibis cancer or who have been treated for Hodgkin's disease. Signer Name: Jean-Pierre Zee MD Signed: 11/27/2021 8:28 AM Workstation Name: [email or web address]
== END 2021-11-26 14:27 | disposition home or self-care (01) ==
LOC: SPVWC 14:26
PROVIDERS: ATTEND Internal Medicine
DX: Z12.31 Encounter for screening mammogram for malignant neoplasm of breast (principal)
CPT/HCPCS: 77067